=== PATIENT | female | born 1955 | race Caucasian/White ===

== ENCOUNTER → 2016-11-16 | Outpatient (CLI) | payer BC | LOC: FIMAGING 10:54 | PROVIDERS: ATTEND Internal Medicine | DX: Z12.31 Encounter for screening mammogram for malignant neoplasm of breast (principal) | CPT/HCPCS: G0202 ==

== ENCOUNTER 2017-12-25 05:42 | Inpatient (IN) | payer BC ==
--- NOTE | 2017-12-06 22:16 | GHP ---
[f rep st] HISTORY AND PHYSICAL CURRENT COMPLAINT: Right hip pain. HISTORY OF PRESENT ILLNESS: The patient is a 62-year-old female with a several-month history of righ t hip pain worsening with use over time despite conservative management. She wishes to have surgery in order to resolve the problem. ALLERGIES: Include codeine and penicillin. CURRENT MEDICATIONS: Include clobetasol, fenofibrate, levothyroxine, lisinopril, lorazepam, Myrbetri q, , ProAir, Synthroid, and testosterone. PRIOR MEDICAL PROBLEMS: Include asthma, high cholesterol, high blood pressure, and low thyroid. PAST SURGICAL HISTORY: She lists no prior surgeries. SOCIAL HISTORY: She has never been a smoker. She is a social drinker. PHYSICAL EXAMINATION: HEENT: The patient's pupils are equal, round, and reactive to light. CHEST: Clear to auscultation. HEART: Regular rate and rhythm. ABDOMEN: Soft and nontender. EXTREMITIES : She has decreased range of motion to her hip, particularly to internal and external rotation. She has 5/5 strength, however, through the hip. IMAGING: MRI reveals moderate right hip osteoarthritis, partial tearing of the gluteus medius, degen erative tearing of the labrum. ASSESSMENT AND PLAN: Patient is status post right hip osteoarthritis. PLAN: To take her to the operating room to undergo a right total hip arthroplasty. /[id number]/MODL
[2017-12-25] MEDS ORDERED: TRANEXAMIC ACID 3,000 MG in NS (SYRINGE) 50 ML IRR ONE (06:00)
[2017-12-25] MEDS ORDERED: ROPIVACAINE 0.2% 80 MG, EPINEPHrine 0.2 MG, KETOROLAC TROMETHAMINE 30 MG, morphINE 10 M... IU ONE (06:00)
[2017-12-25] MEDS ORDERED: ACETAMINOPHEN 500 MG TAB PO ONE (06:05)
[2017-12-25] MEDS ORDERED: CLINDAMYCIN 900 MG/DEXTROSE 50 ML IV ONE (06:05)
[2017-12-25] MEDS ORDERED: PREGABALIN 150 MG CAP PO ONE (06:05)
[2017-12-25] MEDS ORDERED: LR 1,000 ML IV ONE (06:35)
[2017-12-25] MEDS ORDERED: TRANEXAMIC ACID 3,000 MG/50 ML BAG IRR ONE (06:46)
[2017-12-25] MEDS ORDERED: BUPIVACAINE/EPI 0.5% 30 ML SDV ONE (06:46)
[2017-12-25] MEDS ORDERED: CALCIUM CHLORIDE 1 GM/10 ML INJ ONE (06:56)
[2017-12-25] MEDS ORDERED: BACITRACIN 50,000 UNITS/10 ML SYR IRR ONE (06:56)
[2017-12-25] MEDS ORDERED: POLYMYXIN B SULFATE 500,000 UNIT/10 ML SYR IRR ONE (06:56)
[2017-12-25] MEDS ORDERED: THROMBIN (BOVINE) 5,000 UNIT VIAL TP ONE (06:56)
[2017-12-25] MEDS ORDERED: MIDAZOLAM 2 MG/2 ML VIAL IVP ONE (07:11)
--- NOTE | 2017-12-25 07:14 | PDANEPAE ---
ANE History of Present Illness r hip oa ANE Past Medical History - Cardiovascular History Hx Hypertension: Yes Hx Arrhythmias: No Hx Chest Pain: No Hx Coronary Artery / Peripheral Vascular Disease: No Hx CHF / Valvular Disease: No Hx Palpitations: No Cardiovascular History Comment: HTN EARLY 20'S - Pulmonary History Hx COPD: No Hx Asthma/Reactive Airway Disease: Yes Hx Recent Upper Respiratory Infection: Yes Hx Oxygen in Use at Home: No Hx Sleep Apnea: No Sleep Apnea Screening Result - Last Documented: Negative Pulmonary History Comment: ASTHMA ENVIRONMENTAL TRIGGERS. 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 SLOW CLOTTING TIME BRUISES EASILY - Chronic Pain History Chronic Pain: Yes (RT HIP) - Surgical History Prior Surgeries: CARLY CATARACT. DX LAP FOR INVITRO ANE Review of Systems Review of Systems: - Exercise capacity METS (RN): 4 METS ANE Patient History - Allergies Allergies/Adverse Reactions: codeine Allergy (Verified 12/04/17 14:51) Rash Penicillins Allergy (Verified 12/04/17 14:51) tongue swelling - Home Medications Home Medications: Acetaminophen [Tylenol 325mg (*)] 325 - 650 mg PO Q6 PRN 12/04/17 [Last Taken 06:00] Albuterol [Proventil Inhaler HFA (*)] 1 - 2 puffs IH DAILY PRN 12/04/17 [Last Taken 2 Weeks Ago ~12/11/17] Cmpd Testosterone 1.5mg Cap 1 each PO DAILY 12/04/17 [Last Taken 12/24/17 06:00] Fenofibrate 54 mg PO DAILY 12/04/17 [Last Taken 12/24/17 06:00] Herbals/Supplements -Info Only 1 ea PO DAILY 12/04/17 [Last Taken 1 Week Ago ~] Levothyroxine [Synthroid 100 mcg (*)] 100 mcg PO DAILY06 12/04/17 [Last Taken 06:00] Lisinopril [Zestril 5 mg (*)] 5 mg PO DAILY 12/04/17 [Last Taken 12/23/17] Mirabegron [Myrbetriq] 25 mg PO DAILY 12/04/17 [Last Taken 12/24/17 06:00] Ospemifene [Osphena] 60 mg PO DAILY 12/04/17 [Last Taken 12/24/17 06:00] Dulcolax Stool Softener DAILY 12/13/17 [Last Taken 12/23/17] Ranitidine HCl [Zantac] 150 mg PO 12/25/17 [Last Taken 12/24/17 22:00] - NPO status NPO Since - Liquids (Date): 12/24/17 NPO Since - Liquids (Time): 23:30 NPO Since - Solids (Date): 12/24/17 NPO Since - Solids (Time): 19:00 - Smoking Hx Smoking Status: Never smoked - Family Anes Hx Family Hx Anesthesia Complications: NEG ANE Labs/Vital Signs - Vital Signs Blood Pressure: 103/74 Heart Rate: 79 Respiratory Rate: 16 O2 Sat (%): 96 Height: 165.1 cm Weight: 63.049 kg ANE Physical Exam - Airway Neck exam: FROM Mallampati Score: Class 2 Mouth exam: normal dental/mouth exam - Pulmonary Pulmonary: no respiratory distress - Cardiovascular Cardiovascular: regular rate and rhythym - ASA Status ASA Status: II ANE Anesthesia Plan Anesthesia Plan: GA w LMA, spinal
[2017-12-25] MEDS ORDERED: MIDAZOLAM 2 MG/2 ML VIAL ONE (07:16)
--- NOTE | 2017-12-25 07:18 | PDHPUP ---
History & Physical Update H&P update statement: This history and physical update is based on an assessment of the patient which was completed after admission or registration (within 24 hours), but prior to the surgery/procedure. H&P update: H&P reviewed & patient examined, no change in patient's condition since H&P completed
[2017-12-25] MEDS ORDERED: fentaNYL 100 MCG/2 ML INJ ONE ×3 (07:22→10:19)
[2017-12-25] MEDS ORDERED: PROPOFOL 200 MG/20 ML VIAL ONE (07:22)
[2017-12-25] MEDS ORDERED: PROPOFOL/EMULSION 500 MG/50 ML BOTTLE IV ONE (07:42)
[2017-12-25] MEDS ORDERED: HYDROmorphONE/DILAUDID 1 MG/ML INJ IVP PRN (08:18)
[2017-12-25] MEDS ORDERED: NALOXONE HCL 0.4 MG/ML INJ IVP PRN (08:18)
[2017-12-25] MEDS ORDERED: ePHEDrine SULFATE 25 MG/5 ML SYR ONE (09:30)
[2017-12-25] MEDS ORDERED: PHENYLEPHRINE HCL 100 MCG/ML SYR ONE (09:30)
[2017-12-25] MEDS ORDERED: ROCURONIUM 50 MG/5 ML VIAL ONE (09:31)
[2017-12-25] MEDS ORDERED: DEXAMETHASONE 4 MG/ML VIAL ONE (09:31)
[2017-12-25] MEDS ORDERED: BUPIVACAINE/DEXTROSE 7.5MG/ML 2 ML SPINAL AMP SP ONE (09:31)
[2017-12-25] MEDS ORDERED: ONDANSETRON 4 MG/2 ML VIAL ONE (09:31)
[2017-12-25] MEDS ORDERED: TEMAZEPAM 15 MG CAP PO PRN (09:57)
[2017-12-25] MEDS ORDERED: METOCLOPRAMIDE 10 MG/2 ML VIAL IVP PRN (09:57)
[2017-12-25] MEDS ORDERED: oxyCODONE IR 5 MG TAB PO PRN (09:57)
[2017-12-25] MEDS ORDERED: CYCLOBENZAPRINE 10 MG TAB PO PRN (09:57)
[2017-12-25] MEDS ORDERED: PROMETHAZINE HCL 25 MG/ML INJ IVP PRN (09:57)
[2017-12-25] MEDS ORDERED: diphenhydrAMINE 25 MG CAP PO PRN (09:57)
[2017-12-25] MEDS ORDERED: ONDANSETRON DISINTEGRATING 4 MG TAB PO PRN (09:57)
[2017-12-25] MEDS ORDERED: ONDANSETRON 4 MG/2 ML VIAL IVP PRN (09:57)
[2017-12-25] MEDS ORDERED: PROMETHAZINE HCL 25 MG SUPPR PR PRN (09:57)
[2017-12-25] MEDS ORDERED: POLYETHYLENE GLYCOL 3350 17 GM PKT PO PRN (09:57)
[2017-12-25] MEDS ORDERED: TAPENTADOL HCL 50 MG TAB PO PRN (09:57)
[2017-12-25] MEDS ORDERED: BISACODYL 10 MG SUPP PR PRN (09:57)
[2017-12-25] MEDS ORDERED: DIPHENOXYLATE/ATROPINE LOMOTIL 1 TAB PO PRN (09:57)
[2017-12-25] MEDS ORDERED: MAGNESIUM HYDROXIDE 30 ML UDCUP PO PRN (09:57)
[2017-12-25] MEDS ORDERED: LACTULOSE 20 GM/30 ML UDCUP PO PRN (09:57)
--- NOTE | 2017-12-25 09:57 | POSTOPPROG ---
Post Op Note Date of Operation: 12/25/17 Surgeon: Yue Condon Pool Table Operator: coltrain Anesthesia: Epidural, LMA Pre-op Diagnosis: r hip oa Procedure: r alessia with fluoro Inf/Abcess present in the surg proc area at time of surgery?: No Depth: Deep Incisional (Fascial) EBL: 100-500
[2017-12-25] MEDS ORDERED: BISACODYL 5 MG EC TAB PO PRN (10:00)
[2017-12-25] MEDS ORDERED: LR 1,000 ML IV SCH (10:00)
[2017-12-25] MEDS ORDERED: ALBUTEROL 60 PUFFS/8 GM MDI IH PRN (10:00)
--- NOTE | 2017-12-25 10:15 | POSTANESTH ---
Post Anesthetic Evaluation Cardiovascular Status: Normal, Stable Respiratory Status: Normal, Stable Level of Consciousness/Mental Status: Can Participate in Eval Pain Control: Adequate, Prn Tx Ordered Nausea/Vomiting Control: Adequate, Prn Tx Ordered Complications Possibly Related to Anesthesia: None Noted
[2017-12-25] MEDS: fentaNYL 100 MCG/2 ML INJ IVP PRN ×2 (10:22→10:31)
[2017-12-25] MEDS ORDERED: HYDROmorphONE/DILAUDID 1 MG/ML INJ ONE (10:34)
--- NOTE | 2017-12-25 11:20 | GOP ---
[f rep st] OPERATIVE REPORT DATE OF OPERATION: 12/25/2017 SURGEON: Yue Condon MD SUPERVISOR METAL FURNITURE FABRICATION: JOVANI Quinn, whose presence was medically necessary. ANESTHESIA: LMA plus epidural nerve block. PREOPERATIVE DIAGNOSIS: Right hip osteoarthritis. POSTOPERATIVE DIAGNOSIS: Right hip osteoarthritis. PROCEDURE PERFORMED: Right total hip arthroplasty with fluoroscopy. FINDINGS: INDICATIONS: This is a 62-year-old female with a several-month history of right hip pain worsening w ith use and with time. Radiographic studies revealed significant osteoarthritic changes in the hip. She wishes to have surgery in order to resolve the problem. DESCRIPTION OF PROCEDURE: The patient was brought to the operating room after the right side had bee n identified as the correct side by the patient, nurse, and physician. Once in the operating room, s he was given an epidural nerve block and then placed on a traction table with a well-padded peroneal post, and both legs placed in appropriate leg rosales. Fluoroscopy was used to ensure proper position ing of the pelvis. She was noted to be somewhat short on her right side when compared to her left. The right hip and flank were then sterilely prepped and draped in the usual fashion using a GSI solut ion. Once prepped and draped, a linear incision was made starting 2 cm lateral and inferior to the A SIS, and heading in a 15-degree posterior direction with sharp dissection carried down through the sk in and subcutaneous layers, identifying the fascial sheath below. The sheath overlying the TFL was s plit, and the muscle belly was retracted laterally. Further deeper dissection was done into the floo r of the fascial sheath, and the circumflex vessels were cauterized. Deeper dissection was done onto the hip capsule with blunt Cobra retractors placed on the superior and inferior femoral neck, and an acetabular retractor placed medially. The entire anterior capsule was excised. Oscillating saw was used to cut across just proximal to the intertrochanteric line. The leg was externally rotated 4 de grees, and a corkscrew was used to remove the femoral head. The pulvinar at the base of the acetabul um was removed as well as the ligamentum teres, and the labrum from around the periphery. Sequential reamers were used, starting at a size 45 and going up to a size 43, achieving good bleeding bone and good fit. It was checked under fluoroscopy to ensure there was adequate amount of bone within the a mario. A 54 3-hole hemispherical stick tight shell from [employer] was put into place and noted to fit securely. A screw was placed in the superior and posterior portions of the cup in order to se cure it in place, and a manhole cover placed at its base. The wound was thoroughly irrigated with an antibiotic solution and then a 54 x 36 ceramic shell was put into place and noted to fit securely. Attention was then turned to the femur, which was externally rotated to 90 degrees. Dissection was d one off the anterior and superior portions of the femoral neck in order to loosen the capsule around the area. Once an adequate release had been performed, leg was placed in extension and adduction. C urette was used to remove the cancellous bone, which was noted to be very hard, as well as a very thi ck cortex around the femoral neck. The superior portion of the femoral neck was also removed using a rongeur. Sequential broaches were then used up to a size 3, which was noted to fit very snugly. Tr ial reduction was performed. She was noted for the hip to be very stable and very tight. X-rays wer e done, ensuring an adequate fill of the proximal femur with the stem. Therefore, the hip was re-dis located, trial was removed, and a size 3 standard offset anthology femoral component [facility] was put into place and noted to fit securely. Trial reduction was done with a +0 head and note d to fit securely. Had excellent stability. Was slightly longer compared to the opposite side, whic h also had some arthritic changes. Therefore, the hip was re dislocated, the trunnion was washed and dried, and a 36+ 0 head was placed on the trunnion. The hip was again relocated and noted to fit se curely after traction had been removed. Tranexamic acid was irrigated through the wound. Joint cock tail was injected in the posterior capsule, and the periosteum of the femur and acetabulum. The woun d was then closed in layer using 0 Vicryl suture over the fascial sheath with plasma gel placed intra -articularly. 0 Vicryl and 2-0 Vicryls for the subcutaneous layers, and a 3-0 V-Loc suture in a runn ing subcuticular stitch for the skin. 30 cc of Marcaine was infused around the skin incision, and th e wound was then dressed with Steri-Strips, Xeroform, 4 x 4, and Tegaderm. She was completely undrap ed in the operating room. Peroneal post was removed. The leg lengths were checked, and noted to hav e slight increase in length into the right side, which is to be expected. She was then transferred o [facility] a stretcher, and sent to recovery room in good condition. /[id number]/MODL
--- NOTE | 2017-12-25 13:11 | PDMN ---
Medical Necessity Medical [place] [facility] [place]. 62 y/o s/p TROY, Anterior approach. Medicare Inpatient Only
[2017-12-25] MEDS: ACETAMINOPHEN 325 MG TAB PO SCH ×2 (13:18→18:37)
[2017-12-25] MEDS: KETOROLAC 15 MG/1 ML SDV IVP SCH ×3 (13:28→18:36)
[2017-12-25] MEDS: traMADol 50 MG TAB PO SCH ×2 (13:29→18:37)
[2017-12-25] MEDS ORDERED: VANCOMYCIN 1 GM in NS 250 ML IV ONE (15:00)
[2017-12-25] MEDS ORDERED: FAMOTIDINE 20 MG TAB PO SCH (21:00)
[2017-12-25] MEDS: FAMOTIDINE 20 MG TAB PO SCH (21:13)
[2017-12-25] MEDS: SENNOSIDES/DOCUSATE SODIUM TAB PO SCH (21:13)
[2017-12-26] MEDS: ACETAMINOPHEN 325 MG TAB PO SCH ×3 (00:44→11:01)
[2017-12-26] MEDS: KETOROLAC 15 MG/1 ML SDV IVP SCH ×2 (00:44→06:05)
[2017-12-26] MEDS: traMADol 50 MG TAB PO SCH ×3 (03:01→11:00)
[2017-12-26] MEDS ORDERED: LEVOTHYROXINE 100 MCG TAB PO SCH (06:00)
[2017-12-26] MEDS ORDERED: LISINOPRIL 5 MG TAB PO SCH (09:00)
[2017-12-26] MEDS ORDERED: RIVAROXABAN 10 MG TAB PO SCH (09:00)
[2017-12-26] MEDS ORDERED: Mirabegron [Myrbetriq] 25 MG PO SCH (09:00)
[2017-12-26] MEDS ORDERED: FENOFIBRATE 48 MG TAB PO SCH (09:00)
[2017-12-26] MEDS ORDERED: Ospemifene [Osphena] 60 MG PO SCH (09:00)
[2017-12-26] MEDS ORDERED: TESTOSTERONE PO SCH (09:00)
[2017-12-26] MEDS: FAMOTIDINE 20 MG TAB PO SCH (09:57)
[2017-12-26] MEDS: SENNOSIDES/DOCUSATE SODIUM TAB PO SCH (09:59)
[2017-12-26 12:06] VITALS: BP 102/67
--- NOTE | 2017-12-26 14:14 | ASDISCHSUM ---
Discharge Information Plan Status:Home with No Needs Medically Cleared to Leave:12/26/2017 Discharge Date:12/26/2017 02:00 PM CM D/C Disposition:Home, Routine, Self-Care ADT D/C Disposition:Home, Routine, Self-Care Projected Discharge Date:12/26/2017 02:00 PM Transportation at D/C:Family Discharge Delay Reason: Follow-Up Date:12/26/2017 02:00 PM Discharge Slot: Final Diagnosis: Placement Information Patient Contact Information Contact Name:ANIYA Relationship: Address:[address] [place] Alternate Phone: [facility]/Zip Code:[place] [address] Email: Financial Information Financial Class:BCOP Primary Plan Desc: OUT OF [facility] Primary Plan Number:[id number] Secondary Plan Desc: Secondary Plan Number: Assessment Information Case Management Discharge Plan Note Case Management Discharge Discharge Order Complete? Answers: Yes Patient to Obtain Answers: via Family Medications Transportation Arranged Answers: Family/Friends Family Notified Answers: Yes Discharge Comments Notes: Pt is s/p a planned R TROY. PT/OT have cleared for home. Pt's is available for assistance. Pt is discharging home today with no CM needs. Date Signed: 12/26/2017 02:12 PM Electronically Signed By:ZINA Barragan Intervention Information
--- NOTE | 2017-12-26 14:15 | ASMTLACE ---
LACE Length of stay for Answers: 1 day current admission Acuity / Level of Answers: Yes Care: Did the patient have an inpatient admission? Comorbidities - select Answers: Opioid dependence all that apply / Chronic pain Other Notes: HTN; Hypothyroid # of Emergency department Answers: 0 visits in the last 6 months Score: 9 Date Signed: 12/26/2017 02:14 PM Electronically Signed By:ZINA Barragan
--- NOTE | 2017-12-26 16:54 | SOAPPROG ---
SOAP Progress Note Assessment/Plan: Assessment: Mare is a pleasant 62 year old female now POD#1 from right TROY. She is doing well and has cleared PT PE: Dressing clean and dry NV Intace RLE Calf soft to compression without pain Plan: Plan for D/C today Xarelto x10 days post op PT/OT WBAT RLE Follow up in office in 10 days for repeat evaluation 12/26/17 16:52 Objective: Vital Signs Temp Pulse Resp BP Pulse Ox 37.0 C 96 16 102/67 94 12/26/17 12:00 12/26/17 12:00 12/26/17 12:00 12/26/17 12:00 12/26/17 12:00 Laboratory Results 12/26/17 05:13 12/25/17 12/26/17 12/27/17 05:59 05:59 05:59 Intake Total 4900 300 Output Total 1950 300 Balance 2950 0 ICD10 Worksheet Patient Problems: Problems Problem Status Onset Osteoarthritis of right knee Acute - ICD10 Problem Qualifiers (1) Osteoarthritis of right knee
--- NOTE | 2018-01-02 12:10 | GDS ---
[f rep st] DISCHARGE SUMMARY CURRENT COMPLAINT: Right hip pain. HISTORY OF PRESENT ILLNESS: The patient is a 62-year-old female with a several-month history of righ t hip pain worsening with use and with time. X-ray exams revealed significant osteoarthritic changes in the hip. She wishes to have surgery in order to resolve the problem. HOSPITAL COURSE: Patient was brought to the operating room on the day of admission, where she underw ent a right total hip arthroplasty with fluoroscopy. Postoperatively, she was able to progress quick ly with physical therapy and maintain her pain control. She was, therefore, able to be discharged th e following day, 12/26/2017, with instructions to continue to be weightbearing as tolerated, continue with her physical therapy exercises and return to the office for further evaluation. DISCHARGE DIAGNOSIS: Right hip osteoarthritis. /[id number]/MODL
== END 2017-12-26 14:00 | disposition home or self-care (01) | DRG 470 ==
LOC: F3N 05:42
PROVIDERS: ADMIT Orthopaedic Surgery; ATTEND Orthopaedic Surgery
PROC: 0SR903Z Replacement of Right Hip Joint with Ceramic Synthetic Substitute, Open Approach (ICD-10-PCS; principal; 2017-12-25 07:15)
PROC: 6A550Z2 Pheresis of Platelets, Single (ICD-10-PCS; principal; 2017-12-25 07:15)
PROC: BQ101ZZ Fluoroscopy of Right Hip using Low Osmolar Contrast (ICD-10-PCS; 2017-12-25 07:15)
DX: M16.11 Unilateral primary osteoarthritis, right hip (principal); J45.909 Unspecified asthma, uncomplicated; Z88.0 Allergy status to penicillin
CPT/HCPCS: 97116-GP; 97161-GP; 97165-GO; 97530-GP; C1713; J0171; J1100; J1170; J1885; J2250; J2270; J2370; J2405; J2704; J2795; J3010; J3370

== ENCOUNTER 2018-04-02 05:37 | Inpatient (IN) | payer BC ==
--- NOTE | 2018-03-30 08:54 | GHP ---
CHIEF COMPLAINT: Left hip pain and right hip mass. HISTORY OF PRESENT ILLNESS: Ms. Mesa is a 62-year-old female with a several-month history of left hip pain worsening with use over time to the point that it is affecting activities of daily living. She also has an enlarging mass on the right hip that is bothering her that she would like removed. ALLERGIES: Include codeine and penicillins. CURRENT MEDICATIONS: Include clobetasol, fenofibrate, levothyroxine, lisinopril, Myrbetriq, Osphena, ProAir, Synthroid, testosterone. PRIOR MEDICAL PROBLEMS: Include asthma, high cholesterol, high blood pressure, low thyroid. PRIOR SURGERY: Includes a right total hip arthroplasty. SOCIAL HISTORY: She has never been a smoker, and she is a social drinker. PHYSICAL EXAMINATION: HEENT: Pupils are round and reactive to light. CHEST: Clear to auscultation . HEART: Regular rate and rhythm. ABDOMEN: Soft and nontender. EXTREMITIES: She has decreased r ken of motion and pain to the ends of range of motion on the left hip, and she has a soft mass in th e subcutaneous tissues associated with the right hip. ASSESSMENT AND PLAN: Patient status post left hip osteoarthritis and right hip lipoma. PLAN: Take her to the operating room to undergo a left total hip arthroplasty and a right hip lipoma excision. /[id number]/MODL
[2018-04-02] MEDS ORDERED: PREGABALIN 150 MG CAP PO ONE (05:57)
[2018-04-02] MEDS ORDERED: TRANEXAMIC ACID 3,000 MG in NS (SYRINGE) 50 ML IRR ONE (05:57)
[2018-04-02] MEDS ORDERED: ACETAMINOPHEN 500 MG TAB PO ONE (05:57)
[2018-04-02] MEDS ORDERED: VANCOMYCIN PHARMACY TO DOSE MISC ONE (05:57)
[2018-04-02] MEDS ORDERED: ROPIVACAINE 0.2% 80 MG, EPINEPHrine 0.2 MG, KETOROLAC TROMETHAMINE 30 MG, morphINE 10 M... IU ONE (05:57)
[2018-04-02] MEDS ORDERED: LR 1,000 ML IV ONE (06:00)
[2018-04-02] MEDS ORDERED: VANCOMYCIN HCL/NORMAL SALINE 250 ML IV ONE ×2 (06:30→18:30)
[2018-04-02] MEDS ORDERED: TRANEXAMIC ACID 3,000 MG/50 ML BAG IRR ONE (06:52)
[2018-04-02] MEDS ORDERED: CALCIUM CHLORIDE 1 GM/10 ML INJ ONE ×3 (06:54→08:07)
[2018-04-02] MEDS ORDERED: BACITRACIN 50,000 UNITS/10 ML SYR IRR ONE (06:55)
[2018-04-02] MEDS ORDERED: POLYMYXIN B SULFATE 500,000 UNIT/10 ML SYR IRR ONE (06:55)
[2018-04-02] MEDS ORDERED: BUPIVACAINE/EPI 0.5% 30 ML SDV ONE ×2 (07:01→09:34)
[2018-04-02] MEDS ORDERED: LIDOCAINE 2% 5 ML SDV ONE (07:06)
[2018-04-02] MEDS ORDERED: MIDAZOLAM 2 MG/2 ML VIAL IVP ONE (07:06)
[2018-04-02] MEDS ORDERED: PROPOFOL/EMULSION 500 MG/50 ML BOTTLE IV ONE (07:06)
[2018-04-02] MEDS ORDERED: BUPIVACAINE/DEXTROSE 7.5MG/ML 2 ML SPINAL AMP SP ONE (07:10)
[2018-04-02] MEDS ORDERED: MIDAZOLAM 2 MG/2 ML VIAL ONE (07:10)
--- NOTE | 2018-04-02 07:15 | PDANEPAE ---
ANE History of Present Illness left hip OA ANE Past Medical History - Cardiovascular History Hx Hypertension: Yes Hx Arrhythmias: No Hx Chest Pain: No Hx Coronary Artery / Peripheral Vascular Disease: No Hx CHF / Valvular Disease: No Hx Palpitations: No Cardiovascular History Comment: HTN EARLY 20'S - Pulmonary History Hx COPD: No Hx Asthma/Reactive Airway Disease: Yes Hx Recent Upper Respiratory Infection: No Hx Oxygen in Use at Home: No Hx Sleep Apnea: No Sleep Apnea Screening Result - Last Documented: Negative Pulmonary History Comment: ASTHMA ENVIRONMENTAL TRIGGERS. 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 SLOW CLOTTING TIME - Chronic Pain History Chronic Pain: Yes (L HIP) - Surgical History Prior Surgeries: R HIP 12/25/17. CARLY CATARACT. DX LAP FOR INVITRO ANE Review of Systems Review of Systems: - Exercise capacity METS (RN): 4 METS ANE Patient History - Allergies Allergies/Adverse Reactions: codeine Allergy (Verified 12/04/17 14:51) Rash Penicillins Allergy (Verified 12/04/17 14:51) tongue swelling tapentadol [From Nucynta] Allergy (Verified 03/18/18 11:31) Vomiting - Home Medications Home medications: home medication list seen and reviewed Home Medications: Cmpd Testosterone 1.5mg Cap 1 each PO DAILY 12/04/17 [Last Taken 04/01/18] Fenofibrate 54 mg PO DAILY 12/04/17 [Last Taken 04/01/18] Levothyroxine [Synthroid 100 mcg (*)] 100 mcg PO DAILY06 12/04/17 [Last Taken ] Lisinopril [Zestril 5 mg (*)] 5 mg PO DAILY 12/04/17 [Last Taken 04/01/18] Mirabegron [Myrbetriq] 25 mg PO DAILY 12/04/17 [Last Taken 04/01/18] Ospemifene [Osphena] 60 mg PO DAILY 12/04/17 [Last Taken 04/01/18] Acetaminophen [Tylenol ES 500 mg (*)] 500 mg PO Q6HRS PRN 03/18/18 [Last Taken 04/01/18] Naproxen/Esomeprazole Mag [Vimovo Dr 500-20 mg Tablet] 1 each PO BID 03/18/18 [ Last Taken 03/26/18] Proair Hfa 03/20/18 [Last Taken Unknown] - NPO status NPO Since - Liquids (Date): 04/02/18 NPO Since - Liquids (Time): 03:30 NPO Since - Solids (Date): 04/01/18 NPO Since - Solids (Time): 19:00 - Smoking Hx Smoking Status: Never smoked - Family Anes Hx Family Hx Anesthesia Complications: NEG ANE Labs/Vital Signs - Vital Signs Blood Pressure: 110/76 Heart Rate: 83 Respiratory Rate: 16 O2 Sat (%): 99 Height: 165.1 cm Weight: 62.596 kg ANE Physical Exam - Airway Neck exam: FROM Mallampati Score: Class 1 Mouth exam: normal dental/mouth exam - Pulmonary Pulmonary: no respiratory distress - Cardiovascular Cardiovascular: regular rate and rhythym - ASA Status ASA Status: II ANE Anesthesia Plan Anesthesia Plan: spinal
[2018-04-02] MEDS ORDERED: THROMBIN (BOVINE) 20,000 UNIT SPRAY TP ONE (08:03)
--- NOTE | 2018-04-02 08:14 | POSTANESTH ---
Post Anesthetic Evaluation Cardiovascular Status: Normal, Stable Respiratory Status: Normal, Stable Level of Consciousness/Mental Status: Can Participate in Eval, Alert and Oriented Pain Control: Adequate, Prn Tx Ordered Nausea/Vomiting Control: Adequate, Prn Tx Ordered Complications Possibly Related to Anesthesia: None Noted
[2018-04-02] MEDS ORDERED: fentaNYL 100 MCG/2 ML INJ ONE (08:55)
[2018-04-02] MEDS ORDERED: PROMETHAZINE HCL 25 MG/ML INJ IVP PRN ×2 (09:15→09:58)
[2018-04-02] MEDS ORDERED: LR 500 ML IV PRN (09:15)
[2018-04-02] MEDS ORDERED: ALBUTEROL 3 ML DEYVIAL IH PRN (09:15)
[2018-04-02] MEDS ORDERED: NALOXONE HCL 0.4 MG/ML INJ IVP PRN (09:15)
[2018-04-02] MEDS ORDERED: ONDANSETRON 4 MG/2 ML VIAL IVP PRN ×2 (09:15→09:58)
[2018-04-02] MEDS ORDERED: HYDROmorphONE/DILAUDID 2 MG/ML INJ IVP PRN (09:15)
[2018-04-02] MEDS ORDERED: HYDROCODONE/APAP 5/325 TAB PO PRN (09:15)
[2018-04-02] MEDS ORDERED: ACETAMINOPHEN 500 MG TAB PO PRN (09:15)
[2018-04-02] MEDS ORDERED: fentaNYL 100 MCG/2 ML INJ IVP PRN (09:15)
[2018-04-02] MEDS ORDERED: PROPOFOL 200 MG/20 ML VIAL ONE (09:25)
[2018-04-02] MEDS ORDERED: DIPHENOXYLATE/ATROPINE LOMOTIL 1 TAB PO PRN (09:58)
[2018-04-02] MEDS ORDERED: CYCLOBENZAPRINE 10 MG TAB PO PRN (09:58)
[2018-04-02] MEDS ORDERED: PROMETHAZINE HCL 25 MG SUPPR PR PRN (09:58)
[2018-04-02] MEDS ORDERED: LACTULOSE 20 GM/30 ML UDCUP PO PRN (09:58)
[2018-04-02] MEDS ORDERED: POLYETHYLENE GLYCOL 3350 17 GM PKT PO PRN (09:58)
[2018-04-02] MEDS ORDERED: diphenhydrAMINE 25 MG CAP PO PRN (09:58)
[2018-04-02] MEDS ORDERED: ONDANSETRON DISINTEGRATING 4 MG TAB PO PRN (09:58)
[2018-04-02] MEDS ORDERED: METOCLOPRAMIDE 10 MG/2 ML VIAL IVP PRN (09:58)
[2018-04-02] MEDS ORDERED: TEMAZEPAM 15 MG CAP PO PRN (09:58)
[2018-04-02] MEDS ORDERED: BISACODYL 10 MG SUPP PR PRN (09:58)
[2018-04-02] MEDS ORDERED: MAGNESIUM HYDROXIDE 30 ML UDCUP PO PRN (09:58)
--- NOTE | 2018-04-02 09:58 | POSTOPPROG ---
Post Op Note Date of Operation: 04/02/18 Surgeon: Yue Condon Alarm Technician: coltrain Anesthesia: Epidural, LMA Pre-op Diagnosis: l hip oa and r hip lipoma Procedure: l TROY with fluoro and r hip mass exc Inf/Abcess present in the surg proc area at time of surgery?: No Depth: Deep Incisional (Fascial) EBL: 100-500
[2018-04-02] MEDS ORDERED: LR 1,000 ML IV SCH (10:00)
[2018-04-02] MEDS ORDERED: ALBUTEROL 60 PUFFS/8 GM MDI IH PRN (10:01)
--- NOTE | 2018-04-02 11:05 | GOP ---
DATE OF OPERATION: 04/02/2018 SURGEON: Yue Condon MD LABOR RELATIONS MANAGER: JOVANI Quinn, LSA, whose presence was medically necessary. ANESTHESIA: Epidural with IV sedation. PREOPERATIVE DIAGNOSIS: Left hip osteoarthritis and right hip lipoma. POSTOPERATIVE DIAGNOSIS: Left hip osteoarthritis and right hip lipoma. PROCEDURE PERFORMED: Left total hip arthroplasty with fluoroscopy and right hip mass excision. FINDINGS: INDICATIONS: This is a 62-year-old female with a several year history of left hip pain worsening wit h use and with time especially recently. X-ray exams revealed [id number] osteoarthritic changes. She wishes to have surgery in order to resolve the problem. She has also noted a slowly enlarging ma ss on her right hip that is causing her concern and she would like this removed also. DESCRIPTION OF PROCEDURE: Patient brought to the operating room after the left side and right side h ad been identified by the patient, nurse and physician. Once in the operating room she was given epi dural nerve block and then placed on a traction table with a well-padded peroneal post. The left hip was sterilely prepped and draped in the usual fashion using GSI solution. Once prepped and draped, a linear incision was made directly over the area of the TFL starting 2 cm lateral and inferior to th e ASIS and extending in a 15-degree posterior direction. Sharp dissection was carried down through t he skin and subcutaneous layers with bleeding controlled using electrocautery. The fascia overlying the TFL was identified, cut in line with its fibers and the muscle belly retracted laterally. Blunt dissection onto the fascial sheath revealed the circumflex vessels at the base which were cauterized. Deeper dissection was carried down onto the hip capsule with blunt Cobra retractors placed superior and inferior portion of the femoral neck. A bent Hohmann was placed on the anterior portion of the acetabulum. The capsule was excised in its entirety. An oscillating saw was used to cut across the femoral neck just above the intertrochanteric line. The leg was externally rotated to 40 degrees and a corkscrew was used to remove the head. Once the head was removed the pulvinar as well as the labr um was removed from around the acetabulum. The head was measured to be 48 mm. Therefore, a 48 mm re amer was initially used extending up to a 52 mm reamer noted to get good bleeding bone as well as a g ood depth and rim fit. A 52 trial was noted to fit securely and its position was checked under fluor oscopy. Therefore, a 52 mm Trident II Tritanium cluster hole shell from [employer] was put into place, noted to fit securely. A screw was placed in the superior and posterior portion of the acetabular sh ell. Once in place, a 32 x 52 Trident ceramic liner was put into place and noted to fit securely. A ttention was then turned to the proximal femur, which was externally rotated 90 degrees. Soft tissue dissection was done of the capsule in the anterior and superior portion of the femoral neck. Once a n adequate capsular release had been performed, the leg was placed in extension and abduction. Ronge ur was used to remove the superior portion of the femoral neck back to the area around the greater tr ochanter with a curette used to remove medullary bone from the proximal portion of the femur. Canal finder was placed into the proximal femur. Then sequential broaches up to a size 3 which was noted t o fit securely. Trial reduction was performed, noted to have adequate fill of the proximal femur as well as good lengthening. Therefore the hip was redislocated. A size 3 Accolade II 127-degree neck stem was then put into place and noted to fit securely. Trials were again performed. Noted a +4 hea d gave good stability as well as good lengthening, therefore the hip was re-dislocated. The trunnion was cleaned and dried, and a 32+ 4 ceramic head was put into place and noted to fit securely. The l eg was then reduced. Joint cocktail was injected in the posterior capsule along the periosteum of th e acetabulum and femur. The wound was then irrigated with tranexamic acid. Closure was done of the fascia overlying the TFL with #2 PDO suture with plasma gel placed within the fascial sheath. 0 Vicr yl and 2-0 Vicryl suture used for the subcutaneous layers and a 3-0 V-Loc suture in a running subcuti cular stitch for the skin. 30 cc of Marcaine was infused around the skin and the wound was then dres sed with Steri-Strips, Xeroform, 4 x 4, and Tegaderm. The patient was completely undraped in the ope rating room. Attention was then turned to the right side which had a bump placed underneath the righ t hip and the right hip was sterilely prepped and draped in the usual fashion using GSI solution. On ce prepped and draped, a linear incision was made approximately 14 cm long over the area of the fatty mass with sharp dissection carried down through the skin, blunt dissection through the subcutaneous layers. Bleeding controlled using electrocautery. The sheath surrounding the area of the mass was b luntly dissected by finger dissection and using a Knutson. It was removed in its entirety and sent to P athology for further evaluation. Bleeding was controlled using electrocautery. Given the amount of tissue that was removed, an ellipse was taken out of the skin in order to gain good apposition of the skin but not allow the soft tissue to hang. Once the ellipse had been removed, the wound was then c losed in layers to include 0 Vicryl suture for the deep subcutaneous layers, 2-0 Vicryl suture for th e subcutaneous layers and a 3-0 V-Loc suture in a running subcuticular stitch for the skin. 30 cc of Marcaine was infused around this wound. The wound was then dressed with Steri-Strips, Xeroform, 4 x 4, and Tegaderm. She was completely undraped in the operating room, her feet were taken out of the appropriate leg rosales. Peroneal post was removed. Her leg lengths were noted to be nearly equal. She was then transferred onto a bed, and sent to recovery room in good condition. /[id number]/MODL
--- NOTE | 2018-04-02 11:13 | PDMN ---
Medical Necessity Medical necessity: [facility] [place] S560 [place]PT only : OP: L TROY and R hip mass excision
[2018-04-02] MEDS ORDERED: ONDANSETRON 4 MG/2 ML VIAL ONE (11:19)
[2018-04-02] MEDS ORDERED: PROMETHAZINE HCL 25 MG/ML INJ ONE (11:56)
[2018-04-02] MEDS: KETOROLAC 15 MG/1 ML SDV IVP SCH ×3 (14:00→23:50)
[2018-04-02] MEDS: traMADol 50 MG TAB PO SCH ×3 (14:01→23:50)
[2018-04-02] MEDS: oxyCODONE IR 5 MG TAB PO PRN ×2 (14:36→20:34)
[2018-04-02] MEDS: SENNOSIDES/DOCUSATE SODIUM TAB PO SCH (20:33)
[2018-04-02] MEDS: FAMOTIDINE 20 MG TAB PO SCH (20:33)
[2018-04-03] MEDS: traMADol 50 MG TAB PO SCH ×2 (05:05→12:26)
[2018-04-03] MEDS: KETOROLAC 15 MG/1 ML SDV IVP SCH (05:06)
[2018-04-03] MEDS ORDERED: LEVOTHYROXINE 100 MCG TAB PO SCH (06:00)
[2018-04-03] MEDS: SENNOSIDES/DOCUSATE SODIUM TAB PO SCH (08:43)
[2018-04-03] MEDS: FAMOTIDINE 20 MG TAB PO SCH (08:44)
[2018-04-03] MEDS: oxyCODONE IR 5 MG TAB PO PRN ×2 (08:44→14:19)
[2018-04-03] MEDS ORDERED: RIVAROXABAN 10 MG TAB PO SCH (09:00)
[2018-04-03] MEDS ORDERED: Ospemifene [Osphena] 60 MG PO SCH (09:00)
[2018-04-03] MEDS ORDERED: TESTOSTERONE PO SCH (09:00)
[2018-04-03] MEDS ORDERED: MIRABEGRON 25 MG PO SCH (09:00)
[2018-04-03] MEDS ORDERED: FENOFIBRATE 48 MG TAB PO SCH (09:00)
[2018-04-03] MEDS ORDERED: LISINOPRIL 5 MG TAB PO SCH (09:00)
[2018-04-03 12:08] VITALS: BP 114/74
--- NOTE | 2018-04-03 12:40 | SOAPPROG ---
SOAP Progress Note Assessment/Plan: Assessment: Mare is POD#1 s/p LTHA. She reports she is doing well with mild pain. PE: Dressings are clean and dry. No pain with gentle ROM of the hip. NV Intact LLE. Calf soft to compression without pain Plan: 1. Keep dressing clean and dry 2. Xarelto x 10 days post op 3. Prescriptions for pain medication in chart 4. Follow up in 7-10 days for repeat evaluation and wound check 04/03/18 12:38 Objective: Vital Signs Temp Pulse Resp BP Pulse Ox 37.1 C 107 H 16 114/74 90 L 04/03/18 12:00 04/03/18 12:00 04/03/18 12:00 04/03/18 12:00 04/03/18 12:00 Laboratory Results 04/03/18 04:23 04/02/18 04/03/18 04/04/18 05:59 05:59 05:59 Intake Total 2250 Output Total 1275 300 Balance 975 -300 ICD10 Worksheet Patient Problems: Problems Problem Status Onset Osteoarthritis of right knee Acute
--- NOTE | 2018-04-03 12:45 | ASMTLACE ---
ALONDRAE Length of stay for Answers: 1 day current admission Acuity / Level of Answers: Yes Care: Did the patient have an inpatient admission? Comorbidities - select Answers: Opioid dependence all that apply / Chronic pain Other Notes: HTN; Hypothyroid # of Emergency department Answers: 0 visits in the last 6 months Score: 9 Date Signed: 04/03/2018 12:44 PM Electronically Signed By:Gloria Briceno RN
--- NOTE | 2018-04-03 12:46 | ASMTCMCOM ---
CM Note CM Note Notes: Pt cleared for home by PT, she will dc with . CM available for any changes. DC Plan: Independent Date Signed: 04/03/2018 12:45 PM Electronically Signed By:Gloria Briceno RN
== END 2018-04-03 15:05 | disposition home or self-care (01) | DRG 470 ==
LOC: OBSVTOIN 05:37 → F3E 05:37 → F3N 07:07
PROVIDERS: ADMIT Orthopaedic Surgery; ATTEND Orthopaedic Surgery
PROC: 0JBL0ZX Excision of Right Upper Leg Subcutaneous Tissue and Fascia, Open Approach, Diagnostic (ICD-10-PCS; principal; 2018-04-02 07:15)
PROC: 0SRB03Z Replacement of Left Hip Joint with Ceramic Synthetic Substitute, Open Approach (ICD-10-PCS; principal; 2018-04-02 07:15)
DX: M16.12 Unilateral primary osteoarthritis, left hip (principal); D17.39 Benign lipomatous neoplasm of skin and subcutaneous tissue of other sites; Z96.641 Presence of right artificial hip joint; E03.9 Hypothyroidism, unspecified; I10 Essential (primary) hypertension; E78.00 Pure hypercholesterolemia, unspecified; J45.909 Unspecified asthma, uncomplicated
CPT/HCPCS: 97116-GP; 97161-GP; C1713; J0171; J1885; J2250; J2270; J2405; J2550; J2704; J2795; J3010; J3370